=== PATIENT | male | born 1960 | race Two or more races ===

== ENCOUNTER 2016-03-30 00:10 | Emergency (ER) | payer SELFPAY ==
[~2016-03-30] VITALS: Ht 165.1 cm; Wt 65.8 kg
[2016-03-30 00:12] VITALS: BP 182/92
[2016-03-30] MEDS ORDERED: HYDROCODONE/APAP 10/325MG 1 EA TABLET PO ONE (00:30)
[2016-03-30] MEDS ORDERED: ONDANSETRON 4 MG TAB.RAPDIS SL ONE (00:30)
[2016-03-30] MEDS ORDERED: CYCLOBENZAPRINE 10 MG TABLET PO ONE (00:30)
[2016-03-30] MEDS ORDERED: HYDROCODONE/APAP 10/325MG 1 EA TABLET ONE (00:34)
[2016-03-30] MEDS ORDERED: ONDANSETRON 4 MG TAB.RAPDIS ONE (00:34)
[2016-03-30] MEDS ORDERED: CYCLOBENZAPRINE 10 MG TABLET ONE (00:34)
== END 2016-03-30 02:17 | disposition home or self-care (01) ==
LOC: EDBD 00:12 → ER 00:12
DX: S29.012A Strain of muscle and tendon of back wall of thorax, initial encounter (principal); M54.6 Pain in thoracic spine; W07.XXXA Fall from chair, initial encounter; Y93.89 Activity, other specified; Y92.89 Other specified places as the place of occurrence of the external cause; Y99.8 Other external cause status; Z88.0 Allergy status to penicillin
CPT/HCPCS: 71010; 72074; 93005; 99284; A4606; Q0162; Z7610